=== PATIENT | male | born 1945 | race Caucasian/White ===

== ENCOUNTER → 2017-06-02 | Outpatient (CLI) | payer OTHER ==
[~2017-06-02] MED LIST: AMLODIPINE BESIL1 GM PO; AMLODIPINE BESY10 MG PO; AMLODIPINE BESYL5 MG PO; ASPIRIN ENTERI325 M1 PO; ASPIRIN81 M1 PO; BAYER CHEWABLE81 MG PO; BENADRYL25 MG PO; CARVEDILOL6.25 MG PO; CENTRUM SILVER PO; CENTRUM SILVER1 EAC2 PO; CETIRIZINE HC1 MG/ML PO; CLOPIDOGREL BIS75 MG PO; CLOPIDOGREL75 MG PO; COLACE PO; COREG6.25 MG PO; DUREZOL5 ML OP; FISH OIL 1,0001 CA2 PO; FISH OIL 1,0001 CAP PO; FISH OIL 1,001000 M1 PO; FLAX SEED OIL1000 M1 PO; HYDRALAZINE HCL50 MG PO; HYDROCODON-ACE1 EA11 PO; HYDROCODON-ACE1 EAC4 PO; ILEVRO1.7 ML OP; KEFLEX250 M1 PO; LISINOPRIL20 MG PO; MULTI VITAMIN1 EACH PO; OMEPRAZOLE40 M1 PO; OMEPRAZOLE40 MG; PEPCID40 MG PO; PLAVIX PO; PLETAL100 MG PO; PREDNISONE PO; SIMVASTATIN40 MG PO; VITAMIN D1000 UNIT PO; VOLTAREN100 GM TP; [UNRECOGNIZED DRUG - OTHER]
--- NOTE | ~2017-06-02 | US37 ---
[facility] A Service of [facility] & [facility] RADIOLOGY TEXT RESULTS PATIENT: EMILY BIRMINGHAM LOCATION: CNIV : 47 UNIT #: [id number] AGE: [address]: Fam Viera MD SEX: M ORDER DR: [id number] [facility] [address] [place], [place] [address] [id number] O MR#: [id number] Acc #: [id number] NAME: EMILY BIRMINGHAM : 1945 SEX: M STUDY DATE/TIME: 06/02/2017 9:09 UNIT: CNIV ROOM: STUDY DESCRIPTION: US Carotid W/Doppler Bilateral Attending Physician: Fam Viera M.D. Referring Physician: Fam Viera M.D. Ordering Physician: Fam Viera M.D. Primary Care Physician: Mahesh Barba M.D. MEDICAL IMAGING REPORT This report is preliminary unless electronic signature is present DATE OF EXAM 06/02/2017 HISTORY Previous right carotid endarterectomy. FINDINGS The right common carotid artery has no significant plaque. There is minimal plaque in the right carotid bulb which extends up and into the internal carotid artery. The right carotid bulb is dilated consistent with previous surgery. Peak systolic velocity in the proximal right internal carotid artery is 80 cm/sec with an end-diastolic velocity of 25 cm/sec. The ICA:CCA ratio on the right is 0.93. Peak systolic velocity in the right external carotid artery is 104 cm/sec. The right vertebral artery is patent with antegrade flow. The left common carotid artery has no plaque. There is a small amount of heterogeneous dense plaque in the left carotid bulb which extends up into the proximal internal carotid artery. Peak systolic velocity in the mid left internal carotid artery is 101 cm/sec with an end-diastolic velocity of 32 cm/sec. The ICA:CCA ratio on the left is 1.12. Peak systolic velocity in the left external carotid artery is 17 cm/sec. The left vertebral artery is patent with antegrade flow. IMPRESSION No significant stenosis (less than 50%) in the internal carotid arteries bilaterally. No significant stenosis of the right external carotid artery. Significant stenosis of the left external carotid artery. Patent vertebral arteries bilaterally with antegrade flow. [facility] A Service of [facility] & [facility] RADIOLOGY TEXT RESULTS PATIENT: EMILY BIRMINGHAM LOCATION: CNIV : 47 UNIT #: [id number] AGE: [address]: Fam Viera MD SEX: M ORDER DR: Dictated by... Chad Melara M.D. THIS IS AN ELECTRONICALLY VERIFIED REPORT Chad Melara M.D. at 06/03/2017 7:16 AM MARCELLO/arabella TD: 06/02/2017 21:17 JOB #: [id number] MEDICAL IMAGING REPORT Page 1 of 1 COPY
== END | disposition home or self-care (01) ==
LOC: CNIV 08:21
DX: I65.23 Occlusion and stenosis of bilateral carotid arteries (principal); Z98.890 Other specified postprocedural states
CPT/HCPCS: 93880